=== PATIENT | female | born 1980 | race Caucasian/White ===

== ENCOUNTER 2016-11-03 09:48 | Outpatient (CLI) | payer MEDICAID | END 2016-11-03 23:59 | DX: Z79.899 Other long term (current) drug therapy (principal); F41.8 Other specified anxiety disorders ==

== ENCOUNTER 2018-06-21 08:34 | Outpatient (CLI) | payer MEDICAID ==
[2018-06-21 13:03] LABS: ALBUMIN 4.3 g/dL (3.2-5.5); ALBUMIN/GLOBULIN RATIO 1.5 (1.0-2.2); ALKALINE PHOSPHATASE 58 IU/L (42-121); ALT ALANINE AMINOTRANSFERASE 14 IU/L (10-60); AST ASPARTATE AMINOTRANSFERASE 15 IU/L (10-42); BILIRUBIN,TOTAL 0.7 mg/dL (0.2-1.0); BUN - BLOOD UREA NITROGEN 12 mg/dL (6-20); CALCIUM 8.7 mg/dL (8.5-10.3); CARBON DIOXIDE - CO2 28 mmol/L (21-32); CHLORIDE 103 mmol/L (101-111); CHOL/HDL RATIO 2.3 (<4.4); CHOLESTEROL 143 mg/dL; CREATININE 0.8 mg/dL (0.4-1.0); GFR - MDRD 82 (>89); GLUCOSE 84 mg/dL (70-100); HDL CHOLESTEROL 61 mg/dL; LDL CHOLESTEROL,CALCULATED 72 mg/dL; LDL/HDL RATIO 1.2 (<4.4); SODIUM 139 mmol/L (135-145); TOTAL PROTEIN 7.2 g/dL (6.7-8.2); VLDL CHOLESTEROL 10 mg/dL
[2018-06-21 13:04] LABS: EOSINOPHILS # (AUTO) 0.4 10^3/uL (0.0-0.7); EOSINOPHILS % (AUTO) 9.5 %; LYMPHOCYTES # (AUTO) 1.1 10^3/uL (1.5-3.5); LYMPHOCYTES % (AUTO) 27.3 %; MEAN CORPUSCULAR HEMOGLOBIN 29.4 pg (27.0-31.0); MEAN CORPUSCULAR HGB CONC 33.5 g/dL (32.0-36.0); MEAN CORPUSCULAR VOLUME 87.7 fL (81.0-99.0); MEAN PLATELET VOLUME 8.9 fL (7.9-10.8); MONOCYTES # (AUTO) 0.3 10^3/uL (0.0-1.0); MONOCYTES % (AUTO) 8.5 %; NEUTROPHILS # (AUTO) 2.2 10^3/uL (1.5-6.6); NEUTROPHILS % (AUTO) 53.7 %; PLT - PLATELET COUNT 194 10^3/uL (130-450); RED BLOOD COUNT 4.77 10^6/uL (4.20-5.40); RED CELL DISTRIBUTION WIDTH 12.9 % (12.0-15.0); WHITE BLOOD COUNT 4.1 x10^3/uL (4.8-10.8)
== END 2018-06-21 23:59 | disposition home or self-care (01) ==
LOC: LAB.N 08:34
PROVIDERS: ATTEND Family Medicine
DX: Z79.899 Other long term (current) drug therapy (principal); F31.81 Bipolar II disorder
CPT/HCPCS: 36415; 80053; 80061; 83721; 84443; 85025

== ENCOUNTER 2019-03-27 08:00 | Outpatient (CLI) | payer MEDICAID | END 2019-03-27 23:59 | disposition home or self-care (01) | LOC: LAB.N 08:00 | PROVIDERS: ATTEND Family Medicine | DX: Z78.9 Other specified health status (principal) | CPT/HCPCS: 36415; 86317 ==

== ENCOUNTER 2020-08-11 11:06 | Outpatient (CLI) | payer MEDICAID ==
[2020-08-11 18:50] LABS: BASOPHILS # (AUTO) 0.1 10^3/uL (0.0-0.1); BASOPHILS % (AUTO) 0.7 %; EOSINOPHILS # (AUTO) 0.2 10^3/uL (0.0-0.7); LYMPHOCYTES # (AUTO) 1.5 10^3/uL (1.5-3.5); MEAN CORPUSCULAR HGB CONC 32.3 g/dL (32.0-36.0); MEAN CORPUSCULAR VOLUME 89.9 fL (81.0-99.0); MEAN PLATELET VOLUME 10.7 fL (7.9-10.8); MONOCYTES # (AUTO) 0.5 10^3/uL (0.0-1.0); MONOCYTES % (AUTO) 7.2 %; NEUTROPHILS # (AUTO) 4.8 10^3/uL (1.5-6.6); NEUTROPHILS % (AUTO) 67.8 %; PLT - PLATELET COUNT 262 10^3/uL (130-450); RED BLOOD COUNT 4.83 10^6/uL (4.20-5.40); RED CELL DISTRIBUTION WIDTH 12.9 % (12.0-15.0); WHITE BLOOD COUNT 7.1 x10^3/uL (4.8-10.8)
[2020-08-11 19:06] LABS: ALBUMIN 4.3 g/dL (3.2-5.5); ALBUMIN/GLOBULIN RATIO 1.2 (1.0-2.2); BILIRUBIN,TOTAL 0.6 mg/dL (0.2-1.0); CALCIUM 9.3 mg/dL (8.5-10.3); CREATININE 0.8 mg/dL (0.4-1.0); TOTAL PROTEIN 7.8 g/dL (6.7-8.2)
== END 2020-08-11 23:59 | disposition home or self-care (01) ==
LOC: LAB.WCP 11:06
PROVIDERS: ATTEND Nurse Practitioner Family
DX: Z79.899 Other long term (current) drug therapy (principal)
CPT/HCPCS: 36415; 80053; 85025

== ENCOUNTER 2022-03-29 08:00 | Outpatient (CLI) | payer MEDICAID | END 2022-03-29 23:59 | disposition home or self-care (01) | LOC: LAB.N 08:00 | PROVIDERS: ATTEND Physician Assistant | DX: R21 Rash and other nonspecific skin eruption (principal) | CPT/HCPCS: 87070; 87077; 87205 ==

== ENCOUNTER 2022-04-14 08:00 | Outpatient (CLI) | payer MEDICAID ==
[2022-04-14 18:24] LABS: BASOPHILS # (AUTO) 0.1 10^3/uL (0.0-0.1); BASOPHILS % (AUTO) 0.8 %; EOSINOPHILS # (AUTO) 0.2 10^3/uL (0.0-0.7); EOSINOPHILS % (AUTO) 3.8 %; HCT - HEMATOCRIT 41.8 % (37.0-47.0); HGB - HEMOGLOBIN 14.1 g/dL (12.0-16.0); LYMPHOCYTES # (AUTO) 1.5 10^3/uL (1.5-3.5); LYMPHOCYTES % (AUTO) 24.7 %; MEAN CORPUSCULAR HEMOGLOBIN 29.9 pg (27.0-31.0); MEAN CORPUSCULAR HGB CONC 33.7 g/dL (32.0-36.0); MEAN CORPUSCULAR VOLUME 88.7 fL (81.0-99.0); MEAN PLATELET VOLUME 10.3 fL (7.9-10.8); MONOCYTES # (AUTO) 0.4 10^3/uL (0.0-1.0); MONOCYTES % (AUTO) 7.3 %; NEUTROPHILS # (AUTO) 3.8 10^3/uL (1.5-6.6); NEUTROPHILS % (AUTO) 62.9 %; PLT - PLATELET COUNT 287 10^3/uL (130-450); RED BLOOD COUNT 4.71 10^6/uL (4.20-5.40); RED CELL DISTRIBUTION WIDTH 13.8 % (12.0-15.0)
[2022-04-14 18:45] LABS: THYROID STIMULATING HORMONE 0.84 uIU/mL (0.34-5.60)
[2022-04-14 18:54] LABS: ALBUMIN 4.4 g/dL (3.2-5.5); ALBUMIN/GLOBULIN RATIO 1.4 (1.0-2.2); BILIRUBIN,TOTAL 0.5 mg/dL (0.2-1.0); CALCIUM 9.1 mg/dL (8.5-10.3); CREATININE 0.7 mg/dL (0.4-1.0); POTASSIUM 3.7 mmol/L (3.5-5.0); TOTAL PROTEIN 7.5 g/dL (6.7-8.2)
[2022-04-14 18:56] LABS: FOLATE 9.38 ng/mL (5.90 - >24.8)
[2022-04-14 19:03] LABS: BILIRUBIN,URINE NEGATIVE (NEGATIVE); GLUCOSE, URINE (UA) NEGATIVE (NEGATIVE); KETONES,URINE (UA) NEGATIVE (NEGATIVE); LEUKOCYTE ESTERASE, URINE NEGATIVE (NEGATIVE); NITRITE,URINE NEGATIVE (NEGATIVE); OCCULT BLOOD,URINE NEGATIVE (NEGATIVE); PH,URINE 7.5 PH (5.0-7.5); PROTEIN,URINE NEGATIVE (NEGATIVE); UROBILINOGEN,URINE 0.2 (NORMAL) E.U./dL (NORMAL)
[2022-04-14 19:07] LABS: CLARITY,URINE CLEAR (CLEAR)
[2022-04-14 19:12] LABS: BACTERIA,URINE Rare /HPF (None Seen); RBC,URINE 0-5 /HPF (0-5); SQUAMOUS EPITHELIAL CELL,UR FEW Squamous (<= Few); WBC,URINE 0-3 /HPF (0-5)
== END 2022-04-14 23:59 | disposition home or self-care (01) ==
LOC: LAB.N 08:00
PROVIDERS: ATTEND Family Medicine
DX: R21 Rash and other nonspecific skin eruption (principal); R23.8 Other skin changes; R63.4 Abnormal weight loss; R19.7 Diarrhea, unspecified
CPT/HCPCS: 36415; 80053; 81001; 82607; 82746; 83516; 83540; 84443; 84466; 85025; 85651; 87086

== ENCOUNTER 2022-12-08 14:38 | Outpatient (CLI) | payer MEDICAID | END 2022-12-08 14:39 | disposition home or self-care (01) | LOC: LAB 14:38 | PROVIDERS: ATTEND Physician Assistant | DX: Z80.3 Family history of malignant neoplasm of breast (principal) | CPT/HCPCS: 81162; 81599 ==

== ENCOUNTER 2022-12-19 15:29 | Emergency (ER) | payer MEDICAID ==
[2022-12-19 15:48] VITALS: BP 137/91
[2022-12-19] MEDS ORDERED: KETOROLAC 60 MG/2 ML VIAL IM STA (16:07)
[2022-12-19] MEDS ORDERED: AMOX/CLAV 875 MG/125 MG TABLET PO STA (16:09)
[2022-12-19] MEDS ORDERED: SULFAMETH/TRIMETH DS 800/160 MG TABLET PO STA (16:09)
--- NOTE | 2022-12-19 16:31 | XRAY Report ---
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 COMPARISON: None. FINDINGS: Bones: No acute fractures or dislocations. No suspicious bony lesions. Mild hallux valgus. Mild d egenerative changes of the first metatarsophalangeal joint. Soft tissues: No suspicious soft tissue calcifications or masses. Mild soft tissue edema in the fo refoot. IMPRESSION: No acute osseous abnormality. If there is clinical concern or persistent symptoms, additional imaging such as repeat radiographs or advanced imaging (e.g. CT, MRI) may be helpful for further evaluation. Reviewed by: Konstantin Sebastian MD on 12/19/2022 4:29 PM PDT Approved by: Konstantin Sebastian MD on 12/19/2022 4:29 PM PDT Station ID: [id number]
--- NOTE | 2022-12-19 17:01 | ED Physician Documentation ---
PD HPI LOWER EXT INJURY - Stated complaint Stated Complaint: LT FOOT SWOLLEN - Chief complaint Chief Complaint: Ext Problem - History obtained from History obtained from: Patient - History of Present Illness PD HPI LOW EXT INJURY LOCATION: Left, Foot Where injury occurred: Home Pain level max: 5 Pain level now: 4 Improved by: Rest Worsened by: Moving, Palpating Associated symptoms: No: Weakness, Numbness, Tingling Contributing factors: No: Anticoagulated, Prior ortho surgery - Additional information Additional information: 42-year-old female presents to the emergency department for left foot injury. 2 days ago she was pressure washing outside and wearing sandals. 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 She now has redness, swelling and pain to the left foot. No numbness or tingling. Worse with palpation and movement. Tetanus shot is up-to-date. Review of Systems Constitutional: denies: Fever, Chills, Myalgias Respiratory: denies: Cough : denies: Now EGA Skin: denies: Rash Musculoskeletal: denies: Neck pain Neurologic: denies: Headache PD PAST MEDICAL HISTORY - Past Medical History Past Medical History: No - Past Surgical History Past Surgical History: No - Present Medications Home Medications: Ambulatory Orders Medication Instructions Recorded Confirmed Amox/Clav 875/125 [Augmentin] 1 tab PO Q12H #14 tablet 12/19/22 HYDROcod/ACETAM 5/325 [[place] 5/325] 1 - 2 ea PO Q6H PRN #14 tablet 12/19/22 Silver Sulfadiazine Cream 1 applic TOP BID #25 gm 12/19/22 [Silvadene Cream] Sulfamethox/Trimeth 800/160 1 each PO BID #14 tablet 12/19/22 [Bactrim Ds 800/160] - Allergies Allergies/Adverse Reactions: Allergies Allergy/AdvReac Type Severity Reaction Status Date / Time No Known Drug Allergies Allergy Verified 12/19/22 15:44 - Living Situation Living Situation: reports: With family Living Arrangement: reports: At home - Social History Does the pt have substance abuse?: No - Family History Family history: reports: Non contributory - Immunizations Immunizations are current?: Yes Immunizations: TDAP current <10years PD ED PE NORMAL - Vitals Vital signs reviewed: Yes - General General: Alert and oriented X 3, No acute distress, Well developed/nourished - HEENT HEENT: Moist mucous membranes - Derm Derm: Warm and dry - Extremities Extremities: Other (L foot - Mild swelling and erythema over the dorsum of the left foot mainly along the first metatarsal and great toe. Slight yellow drainage from the wounds. No significant swelling on the sole of the foot. No streaking up the leg. Neurovascular intact. No crepitus) - Neuro Neuro: Alert and oriented X 3 - Psych Psych: Normal mood, Normal affect Results - Vitals Vitals: Vital Signs - 24 hr 12/19/22 15:39 Temperature 36.2 C L Heart Rate 77 Respiratory 16 Rate Blood Pressure 137/91 H O2 Saturation 99 Oxygen O2 Source Room air - Rads (name of study) Left foot x-ray Relevant Findings:: Final report received, See rad report PD Medical Decision Making - ED course Complexity details: reviewed results, re-evaluated patient, considered differential, d/w patient, d/w financial sales consultant ED course: 42-year-old female presents to the emergency department with what appears to be a cellulitis from a straw hat washer operator injury 2 days ago to the dorsum of the left foot. We will place on Bactrim and Augmentin. I did consult orthopedics, Dr. Gutierrez, who came and saw the patient. Recommends Silvadene as well. No evidence of deep space infection in the foot at this time. Patient will follow- up with her PCP for further care. Patient counseled regarding signs and sy mptoms for which I believe and urgent re-evaluation would be necessary. Patient with good understanding of and agreement to plan and is comfortable going home at this time This document was made in part using voice recognition software. While efforts are made to proofread this document, sound alike and grammatical errors may occur. Departure - Departure Disposition: 01 Home, Self Care Clinical Impression: Cellulitis Qualifiers: Site of cellulitis: extremity Site of cellulitis of extremity: lower extremity Laterality: right Qualified Code(s): L03.115 - Cellulitis of right lower limb Condition: Good Instructions: ED Infec Skin Cellulitis Follow-Up: Mary Wheeler PA [Primary Care Provider] - Within 1 week Prescriptions: Amox/Clav 875/125 [Augmentin] 1 tab PO Q12H #14 tablet Sulfamethox/Trimeth 800/160 [Bactrim Ds 800/160] 1 each PO BID #14 tablet HYDROcod/ACETAM 5/325 [[place] 5/325] 1 - 2 ea PO Q6H PRN #14 tablet PRN Reason: Pain Silver Sulfadiazine Cream [Silvadene Cream] 1 applic TOP BID #25 gm Comments: Your prescriptions were sent to the [facility] pharmacy in [place]. Please follow-up with your doctor and in 1 week for wound check. Please return sooner if you notice redness, swelling or drainage from the wound that is increasing. Return for fevers. Your x-ray does not show any acute abnormalities. I am prescribing a short course of narcotic pain medication for you. These are potentially dangerous and addictive medications that should be used carefully. These medications may constipate you. Take an vjim-bco-vqkdxlb stool softener (docusate) twice daily with plenty of water while taking these medications. If you go 24 hours without a bowel movement, take brha-[id number]-[id number] miralax, per package instructions. Do not drink or drive while taking these medications. If you received narcotic or sedating medications while in the emergency depar tment, do not drive for 24 hours. Store this medication in a safe, secure place and out of reach of children. It is a violation of federal law to give or sell this medication to another person or to use in a manner other than prescribed. The ED will not refill narcotic prescriptions, including prescriptions lost or stolen. To dispose of unwanted medications: 1. [facility] at [address] in [place] has a medication drop box. They accept prescription medications (in pill form) Sunday through Sunday 9:00 a.m. to 5:00 p.m. 2. [facility] [employer] [facility] accepts prescription medications (in pill form only) for disposal year round. Call for more information. 3. Contact the [facility] for the next [facility] sponsored prescription drug collection event. , [phone], or [phone]; Discharge Date/Time: 12/19/22 17:18
== END 2022-12-19 17:18 | disposition home or self-care (01) ==
LOC: ED 15:29
DX: L03.115 Cellulitis of right lower limb (principal)
CPT/HCPCS: 73630; 96372; 99283; 99284; A9270